=== PATIENT | female | born 2000 | race Caucasian/White ===

== ENCOUNTER 2020-12-17 03:33 | Inpatient (IN) ==
[2020-12-17] MEDS ORDERED: OXYTOCIN 30 UNITS/500 ML BAG IV PRN ×2 (04:18→05:22)
[2020-12-17] MEDS ORDERED: LACTATED RINGER'S 1,000 ML IV PRN (04:18)
--- NOTE | 2020-12-17 04:55 | History & Physical Report ---
Date of Service December 17, 2020 Assessment & Plan Admission and Anticipated Discharge Date Admission Date: December 17, 2020 History of Present Illness Chief Complaint: term in labor Primary Care Provider: NO PCP 20 F P0000 at term presents to L&D without calling and in active labor. GDM diet controlled. Allergies Allergy/AdvReac Type Severity Reaction Status Date / Time No Known Allergies Allergy Unverified 12/08/20 18:45 Home Medications Medication Instructions Recorded Confirmed Type ferrous sulfate 325 mg (65 mg 325 mg PO DAILY 12/08/20 12/08/20 History iron) tablet (Iron (ferrous sulfate)) vits no.124-ferrous fum 1 tab PO HS 12/08/20 12/08/20 History 27 mg iron-folic acid 800 mcg tablet ( Vitamin) metronidazole 250 mg tablet 250 mg PO TID #21 tab 12/10/20 Rx Patient History Medical History Gestational diabetes mellitus Social History Smoking Status: Never smoker Second Hand Exposure: No; Hx Alcohol Use: No Hx Substance Use: No Feels Safe at Home: Yes OB History primigravida treated for Chlamydia in [facility] was negative [employer] History Condyloma present Review of Systems All systems reviewed & are unremarkable except as noted in HPI & below Physical Exam Constitutional: + thin Eyes: PERRL, conjunctivae normal, anicteric sclerae Respiratory: normal respiratory effort, lungs clear to auscultation Cardiovascular: RRR, no murmur, no edema Gastrointestinal (Abdomen): normal bowel sounds, soft, nontender, no hepatosplenomegaly Skin: no rashes, warm and dry Neurologic: patellar DTR's 2+ bilat, sensation intact Psychiatric: A+Ox3, euthymic affect Genitourinary: OB Exam Abdomen: + vertex OB Exam Monitor Tracing: + external FHT monitor used, + external uterine monitor used, + category I and + normal FHT variability Results & Data ([facility]) Vital Signs (Past 12 Hours) Vital Signs Pulse BP 12/17/20 03:52 76 130/73
[2020-12-17 04:59] LABS: Hematocrit (blood only) 39.2 % (37-47); Hemoglobin 13.2 g/dL (12.0-16.0); Mean Corpuscular Hemoglobin 28.6 pg (25-34); Mean Corpuscular Hgb Conc 33.7 g/dL (32-36); Mean Platelet Volume 11.5 fL (7.4-10.4); Platelet Count 237 K/uL (130-400); RDW Coefficient of Variation 14.4 % (11.5-14.5); RDW Standard Deviation 44.3 fL (36.4-46.3); Red Blood Count 4.61 M/uL (4.2-5.4); White Blood Count 13.86 K/uL (4.8-10.8)
[2020-12-17] MEDS ORDERED: LIDOCAINE 1% LOCAL 20 ML VIAL ONE (05:07)
[2020-12-17] MEDS ORDERED: SUPERCREAM 0.870% 15 GM JAR EXT PRN (05:22)
[2020-12-17] MEDS ORDERED: BENZOCAINE 20% AER SPR 82.5 GM CAN EXT PRN (05:22)
[2020-12-17] MEDS ORDERED: IBUPROFEN 600 MG TAB PO PRN (05:22)
[2020-12-17] MEDS ORDERED: ACETAMINOPHEN 325 MG TAB PO PRN (05:22)
[2020-12-17] MEDS ORDERED: bisacodyL 10 MG SUPP PR PRN (05:22)
[2020-12-17] MEDS ORDERED: HYDROCORTISONE ACETATE 25 MG SUPP PR PRN (05:22)
[2020-12-17] MEDS ORDERED: DIPHTHERIA/TETANUS/PERTUSSIS 0.5 ML SYR/VIAL IM ONE (05:22)
--- NOTE | 2020-12-17 05:28 | Delivery Summary ---
Vaginal Delivery Summary Date of Service December 17, 2020 Vaginal Delivery Summary live male KATIE with delayed cord clamping and nuchal cord x1 reduced at delivery of head over intact perineum with Apgars 9/9 weight pending. Cord blood obtained followed by spontaneous delivery of intact placenta. Small first degree tear repaired with 1% Lidocaine and 3/0 Vicryl suture. EBL 150 ml. Final sponge, needle and instrument count are correct. Mom and baby stable.
[2020-12-17] MEDS: DOCUSATE SODIUM 100 MG CAP PO SCH ×2 (08:52→21:21)
[2020-12-17] MEDS: PRENATAL VITAMIN 1 TAB PO SCH (08:53)
[2020-12-17] MEDS: FERROUS SULFATE 325 MG TAB PO SCH (08:53)
[2020-12-17] MEDS ORDERED: PRENATAL VITAMIN 1 TAB PO SCH (21:00)
[2020-12-18 06:53] LABS: Hemoglobin 10.8 g/dL (12.0-16.0); Mean Corpuscular Hemoglobin 28.3 pg (25-34); Mean Corpuscular Hgb Conc 32.7 g/dL (32-36); Mean Corpuscular Volume 86.4 fL (80-100); Mean Platelet Volume 11.3 fL (7.4-10.4); Platelet Count 213 K/uL (130-400); RDW Coefficient of Variation 14.8 % (11.5-14.5); RDW Standard Deviation 46.3 fL (36.4-46.3); Red Blood Count 3.82 M/uL (4.2-5.4); White Blood Count 10.37 K/uL (4.8-10.8)
--- NOTE | 2020-12-18 07:09 | Obstetrical Progress Note ---
Date of Service December 18, 2020 Assessment & Plan (1) Normal course: Continue routine PP care, anticipate d/c home tomorrow (2) Gestational diabetes mellitus: Continue to monitor, will need 2hr OGTT 6 weeks Subjective Ambulation: ambulating normally Voiding: no voiding problems Passing Gas:: No Diet Tolerance:: regular diet Lochia:: Small Feeding Type:: breast feeding Current Pain Level(1-10): 0 Patient doing well, no complaints at this time. Review of Systems All systems reviewed & are unremarkable except as noted in HPI & below Physical Exam Constitutional WD/WN, vitals as above Respiratory normal respiratory effort, lungs clear to auscultation Cardiovascular RRR, no murmur, no edema Gastrointestinal (Abdomen) normal bowel sounds, soft, nontender, no hepatosplenomegaly Fundus below U Results & Data ([facility]) Vital Signs (Past 12 Hours) Vital Signs Temp Pulse Resp BP Pulse Ox 12/18/20 03:45 36.7 C 71 16 106/69 96 12/17/20 23:35 36.8 C 65 16 105/66 96 Laboratory Results H/H 10.8/33%
[2020-12-18] MEDS: DOCUSATE SODIUM 100 MG CAP PO SCH (09:45)
[2020-12-18] MEDS: PRENATAL VITAMIN 1 TAB PO SCH (09:45)
[2020-12-18] MEDS: FERROUS SULFATE 325 MG TAB PO SCH (09:45)
[2020-12-18] MEDS ORDERED: bisacodyL 5 MG TABEC PO SCH (20:00)
== END 2020-12-18 16:46 | disposition home or self-care (01) | DRG 806 ==
LOC: OPB 03:33 → 4S1 03:34 → 4S2 07:31